=== PATIENT | female | born 1950 | race Caucasian/White ===

== ENCOUNTER 2022-02-15 02:35 | Emergency (ER) | payer MEDICARE ==
[~2022-02-15] VITALS: Ht 170.2 cm; Wt 109.0 kg
[2022-02-15] MEDS ORDERED: IBUPROFEN 600MG TABLET PO ONE (03:00)
[2022-02-15] MEDS ORDERED: ONDANSETRON 4MG ODT PO ONE (03:30)
[2022-02-15 04:00] VITALS: BP 126/62
== END 2022-02-15 04:17 | disposition home or self-care (01) ==
LOC: ER 02:35
DX: Z20.822 Contact with and (suspected) exposure to COVID-19 (principal); I10 Essential (primary) hypertension
CPT/HCPCS: 87426; 99283; C9803; Q0162